=== PATIENT | female | born 1950 | race Caucasian/White ===

== ENCOUNTER 2024-06-28 14:32 | Emergency (ER) | payer OTHER ==
[~2024-06-28] VITALS: Ht 172.7 cm; Wt 69.9 kg
--- NOTE | 2024-06-28 14:47 | EKG ---
[facility] Test Date: 2024-06-28 Test Time: 14:44:47 Pat Name: JOS COPELAND Department: ED Room: Gender: F Cigarette Catcher: [id number] : 1950 Requested By: LINDA BETANCOURT Order Number: [id number] Reading MD: Rosa Robin Measurements Intervals [place] Rate: 64 P: 83 VA: 191 QRS: 22 QRSD: 96 T: 70 QT: 433 QTc: 449 Interpretive Statements Sinus rhythm Low voltage, precordial leads Consider anteroseptal infarct No previous ECG available for comparison Electronically Signed On 06-28-2024 16:59:04 FREIGHT RATE ANALYST by Rosa Robin Please click the below link to view image of tracing.
[2024-06-28 14:59] LABS: BASOPHILS # (AUTO) 0.04 K/uL (0.00-0.20); BASOPHILS % (AUTO) 0.3 % (0.0-5.0); EOSINOPHILS # (AUTO) 0.06 K/uL (0.00-0.70); EOSINOPHILS % (AUTO) 0.5 % (0.0-8.0); HEMATOCRIT 39.5 % (36-48); IMMATURE GRANULOCYTE ABSOLUTE 0.04 K/uL (0-1); LYMPHOCYTES # (AUTO) 1.8 K/uL (1.0-4.8); LYMPHOCYTES % (AUTO) 14.4 % (21.0-51.0); MEAN CORPUSCULAR HGB CONC 34.2 g/dL (32.0-36.0); MEAN CORPUSCULAR VOLUME 87.8 fL (79-99); MONOCYTES # (AUTO) 0.5 K/uL (0.1-1.0); MONOCYTES % (AUTO) 4.2 % (3.0-13.0); NEUTROPHILS # (AUTO) 9.8 K/uL (1.8-7.7); NEUTROPHILS % (AUTO) 80.3 % (40.0-77.0); PLATELET COUNT (AUTO) 272 K/uL (130-400); RED CELL DISTRIBUTION WIDTH 11.6 % (11.0-15.5); WHITE BLOOD COUNT (AUTO) 12.2 K/uL (4.8-10.8)
[2024-06-28 15:08] LABS: CREATININE 1.1 mg/dL (0.5-1.0); POTASSIUM 4.2 mmol/L (3.5-5.1)
--- NOTE | 2024-06-28 15:34 | HMCIMG ---
CT HEAD/BRAIN W/O CONTRAST HISTORY: Syncope COMPARISON: None TECHNIQUE: Multiple sequential axial images of the head were obtained from the base of the skull through vertex. Patient was not given contrast through intravenous route. FINDINGS: The ventricles and extraventricular CSF spaces are dilated consistent with cerebral atrophy. Nonspecific white matter changes seen. There is no midline shift, mass effect or herniation. No acute intracranial bleed is seen. Visualized portion of the paranasal sinuses are grossly within normal limits. IMPRESSION: 1. No acute intracranial bleed is seen. 2. Atrophy with white matter changes. CT was performed with one or more following dose reduction techniques: automated exposure control, adjustment of the mA and kv according to patient's size, or use of a iterative reconstruction technique.
--- NOTE | 2024-06-28 17:40 | NUR ---
BROUGHT INTO INTERNAL WAITING AREA FOR IV INSERTION AND MED PASS.
[2024-06-28] MEDS: ondanSETRON 4MG INJ IVP STA (17:47)
[2024-06-28] MEDS: mecliZINE HCL 25 MG TABLET PO STA (17:47)
[2024-06-28] MEDS: 0.9%NACL 1000ML 1,000 ML IV STA (17:48)
--- NOTE | 2024-06-28 18:32 | ERN ---
ED Note History of Present Illness Stated Complaint: SYNCOPE Chief Complaint: Dizzy/Light Headed Time Seen by MD: 14:33 Time Seen by Midlevel: 14:38 Dictation: 73-YEAR-OLD FEMALE WITH A HISTORY OF HYPERTENSION AND CHOLESTEROL COMING IN FOR EVALUATION OF WEAKNESS, DIZZINESS AND SYNCOPAL EPISODE. PATIENT STATES SHE WAS OUT GOLFING WHEN SHE STARTED TO FEEL DIZZY SAT DOWN THEN WHEN SHE TRIED TO GET UP AGAIN AND HAD A SYNCOPAL EPISODE. PATIENT STATES WHEN SHE WAS AT HOME THEY CHECKED HER BLOOD PRESSURE AND IT WAS IN THE 80S. DENIES ANY RECENT ILLNESS, NO FEVER, NO NAUSEA, NO VOMITING, NO DIARRHEA, NO CHEST PAIN OR CHEST DISCOMFORT. Allergies: Coded Allergies: No Known Allergies (Unverified Allergy, Unknown, 06/28/24) Past Medical History Past Medical History: High Cholesterol, Hypertension Surgical History: Hysterectomy Review of System Dictation CONSTITUTIONAL: NEGATIVE FOR FEVER,CHILLS, AND WEIGHT LOSS EYES: NEGATIVE FOR INJURY, PAIN,REDNESS, AND DISCHARGE ENT: NEGATIVE FOR INJURY,PAIN OR SWELLING CARDIOVASCULAR: NEGATIVE FOR CHEST PAIN, PALPITATIONS, AND EDEMA RESPIRATORY: NEGATIVE FOR SHORTNESS OF BREATH, COUGH, AND WHEEZING, ABDOMEN/GI: NEGATIVE FOR ABDOMINAL PAIN, NAUSEA, VOMITING, DIARRHEA, AND CONSTIPATION BACK: NEGATIVE FOR INJURY AND PAIN : NEGATIVE FOR INJURY, BLEEDING AND DISCHARGE MS/EXTREMITY: NEGATIVE FOR INJURY AND DEFORMITY SKIN: NEGATIVE FOR RASH, AND DISCOLORATION NEURO: NEGATIVE FOR HEADACHE, WEAKNESS, NUMBNESS, TINGLING, AND SEIZURE PSYCH: NEGATIVE FOR SUICIDE IDEATION, HOMICIDAL IDEATION, AND HALLUCINATIONS Review of Systems: was completed Initial Vital Sign VS Vital Signs Date Time Temp Pulse Resp B/P (MAP) Pulse Ox O2 Delivery O2 Flow Rate FiO2 06/28/24 14:37 97.3 71 20 125/65 100 Room Air Physical Exam Dictation GENERAL: AWAKE, ALERT, NAD HEAD/FACE: NORMOCEPHALIC, ATRAUMATIC EYES: PERRL, EOMI, VISION AT BASELINE ENT: ORAL CAVITY CLEAR, TMS CLEAR, NO SIGNS OF INFECTION NECK: TRACHEA MIDLINE, SUPPLE, NO NUCHAL RIGIDITY CARDIOVASCULAR: RRR, NORMAL S1/S2, NO MRGS, NO JVD RESPIRATORY: CTAB, NO RESPIRATORY DISTRESS, NO RALES OR WHEEZES ABDOMEN: SOFT, NON-TENDER, NON-DISTENDED, NORMAL BOWEL SOUNDS, NO GUARDING OR REBOUND. SKIN: WARM, DRY, NORMAL TURGOR, NO RASH MS/EXTREMITY: PULSES EQUAL, NO CYANOSIS, NEUROVASCULAR INTACT, FROM NEURO: COAX4, GCS 15, STRENGTH 5/5, CN 2-12 INTACT, NORMAL CEREBELLAR EXAM, NORMAL GAIT, PSYCH: NORMAL BEHAVIOR, MOOD, AND AFFECT NORMAL Results (Laboratory/Radiology) Laboratory/Radiology Laboratory Tests Test 06/28/24 14:50 White Blood Count 12.2 K/uL (4.8-10.8) H Red Blood Count 4.50 MIL/uL (4.00-5.50) Hemoglobin 13.5 g/dL (12.0-16.0) Hematocrit 39.5 % (36-48) Mean Corpuscular Volume 87.8 fL (79-99) Mean Corpuscular Hemoglobin 30.0 pg (27.0-33.0) Mean Corpuscular Hemoglobin Concent 34.2 g/dL (32.0-36.0) Red Cell Distribution Width 11.6 % (11.0-15.5) Platelet Count 272 K/uL (130-400) Mean Platelet Volume 9.2 fL (7.5-10.5) Immature Granulocyte % (Auto) 0.3 % (0-1) Neutrophils (%) (Auto) 80.3 % (40.0-77.0) H Lymphocytes (%) (Auto) 14.4 % (21.0-51.0) L Monocytes (%) (Auto) 4.2 % (3.0-13.0) Eosinophils (%) (Auto) 0.5 % (0.0-8.0) Basophils (%) (Auto) 0.3 % (0.0-5.0) Neutrophils # (Auto) 9.8 K/uL (1.8-7.7) H Lymphocytes # (Auto) 1.8 K/uL (1.0-4.8) Monocytes # (Auto) 0.5 K/uL (0.1-1.0) Eosinophils # (Auto) 0.06 K/uL (0.00-0.70) Basophils # (Auto) 0.04 K/uL (0.00-0.20) Absolute Immature Granulocyte (auto 0.04 K/uL (0-1) Nucleated Red Blood Cells 0.0 % (0.0-0.19) Sodium Level 142 mmol/L (136-145) Potassium Level 4.2 mmol/L (3.5-5.1) Chloride Level 105 mmol/L (101-111) Carbon Dioxide Level 27 mmol/L (21-32) Blood Urea Nitrogen 19 mg/dL (7-18) H Creatinine 1.1 mg/dL (0.5-1.0) H Glomerular Filtration Rate Calc 54 mL/min (>90) Random Glucose 129 mg/dL (70-105) H Total Calcium 10.0 mg/dL (8.5-10.1) Troponin I High Sensitivity 5 ng/L (4-50) Labs Reviewed?: Yes EKG Comment: DATE:06/28/24 TIME:144 VENTRICULAR RATE:64 UT INTERVAL:194 QRS DURATION:22 QT/QTC:433/449 EKG INTERPRETATION: SINUS RHYTHM, LOW VOLTAGE, PRECORDIAL LEADS, CONSIDER ANTEROSEPTAL INFARCT REVIEWED BY ED ATTENDING NO STEMI INTERPRETED BY ER MD CT Scan Comment: [address] [id number] IMAGING REPORT Signed PATIENT: JOS COPELAND MR#: [id number] : 1950 SEX: F AGE: 73 LOCATION: [facility] ORDER 43 STATUS: REG ER REPORT#: [id number] SERVICE 42 REASON: SYNCOPE/DIZZINESS ORDERING PHYSICIAN: LINDA BETANCOURT NP PROCEDURE: HEAD WO - CT HEAD/BRAIN W/O CONTRAST CT HEAD/BRAIN W/O CONTRAST HISTORY: Syncope COMPARISON: None TECHNIQUE: Multiple sequential axial images of the head were obtained from the base of the skull through vertex. Patient was not given contrast through intravenous route. FINDINGS: The ventricles and extraventricular CSF spaces are dilated consistent with cerebral atrophy. Nonspecific white matter changes seen. There is no midline shift, mass effect or herniation. No acute intracranial bleed is seen. Visualized portion of the paranasal sinuses are grossly within normal limits. IMPRESSION: 1. No acute intracranial bleed is seen. 2. Atrophy with white matter changes. CT was performed with one or more following dose reduction techniques: automated exposure control, adjustment of the mA and kv according to patient's size, or use of a iterative reconstruction technique. DICTATED BY: JERMAINE LOCO MD DATE: 06/28/241529 ELECTRONICALLY SIGNED BY: JERMAINE LOCO MD DATE: 06/28/24 1534 ED Course ED Course Orders Procedure Category Date Status Time Cbc With Differential LAB 06/28/24 Complete 14:43 Basic Metabolic Panel LAB 06/28/24 Complete 14:43 12 Lead Ekg Tracing- EKG 06/28/24 Resulted Technical 14:43 Troponin I High LAB 06/28/24 Complete Sensitivity 14:43 Ct Head/Brain W/O CT 06/28/24 Resulted Contrast 14:43 Urinalysis Profile LAB 06/28/24 Logged 14:43 0.9%Nacl 1000ml (Ns PHA 06/28/24 Complete 1000ml) 14:44 Ondansetron 4mg Inj PHA 06/28/24 Verified (Zofran 4mg Inj) 14:44 Meclizine Hcl 25 Mg PHA 06/28/24 Verified (Antivert 25 Mg) 14:44 Current Medications Medications (Trade) Dose Ordered Sig/Sydnie Route PRN Reason Start Time Stop Time Status Last Admin Dose Admin Meclizine HCl (ANTIvert 25 mg) 25 mg ONCE STAT PO 06/28/24 14:44 06/28/24 14:45 DC 06/28/24 17:47 Ondansetron HCl (zoFRAN 4MG INJ) 4 mg ONCE STAT IVP 06/28/24 14:44 06/28/24 14:45 DC 06/28/24 17:47 Sodium Chloride 1,000 ml @ 1,000 mls/hr Q1H STAT IV 06/28/24 14:44 06/28/24 15:43 DC 06/28/24 17:48 Vital Signs Date Time Temp Pulse Resp B/P (MAP) Pulse Ox O2 Delivery O2 Flow Rate FiO2 06/28/24 14:37 97.3 71 20 125/65 100 Room Air Medical Decision Making MDM MDM: 73-YEAR-OLD FEMALE WITH A HISTORY OF HYPERTENSION AND CHOLESTEROL COMING IN FOR EVALUATION OF WEAKNESS, DIZZINESS AND SYNCOPAL EPISODE. PATIENT STATES SHE WAS OUT GOLFING WHEN SHE STARTED TO FEEL DIZZY SAT DOWN THEN WHEN SHE TRIED TO GET UP AGAIN AND HAD A SYNCOPAL EPISODE. PATIENT STATES WHEN SHE WAS AT HOME THEY CHECKED HER BLOOD PRESSURE AND IT WAS IN THE 80S. PATIENT STATES BY THE TIME SHE ARRIVED HERE IN THE HOSPITAL DIZZINESS AND HER SYMPTOMS HAVE IMPROVED. DENIES ANY RECENT ILLNESS, NO FEVER, NO NAUSEA, NO VOMITING, NO DIARRHEA, NO CHEST PAIN OR CHEST DISCOMFORT.CBC SHOWS MILD LEUKOCYTOSIS OF 12, NO ANEMIA, THROMBOCYTOPENIA. CHEMISTRY SHOWS MILD ELEVATION OF BUN AND CREATININE, THIS COULD BE DUE TO DEHYDRATION. POTASSIUM IS NORMAL. CT OF THE HEAD IS NORMAL. TROPONIN IS NEGATIVE. EKGS SHOWS NO ST ELEVATIONS OR DYSRHYTHMIAS. AFTER FLUIDS AND MECLIZINE AND ZOFRAN PATIENT STATES SHE FEELS MUCH BETTER. DISCUSSED WITH THE PATIENT POSSIBILITY FOR ADMISSION FOR YOUR CARDIAC FURTHER EVALUATION, PATIENT STATES SHE RATHER FOLLOW UP WITH HER PCP SHE IS FEELING MUCH BETTER. EDUCATED ON RED FLAG SYMPTOMS AND WHEN TO RETURN BACK TO ER LIKE CHEST PAIN, SYNCOPE, NAUSEA, VOMITING. PATIENT AND SPOUSE VERBALIZED UNDERSTANDING, ANSWERED ALL QUESTIONS. DIFFERENTIAL DIAGNOSIS: ACS, DEHYDRATION, VASOVAGAL, ICH, RATIONALE: TESTS CONSIDERED AND ORDERED SECONDARY TO SHARED DECISION MAKING INCLUDE: PREVIOUS OUTSIDE RECORDS REVIEWED: OLD ER VISITS. RISK OF COMPLICATION AND/OR MORBIDITY OR MORTALITY OF PATIENT MANAGEMENT: NONE MEDICATIONS-PER MEDICATION RECONCILIATION NEED FOR HOSPITALIZATION: PATIENT DOES NOT MEET CRITERIA FOR HOSPITALIZATION. NEED FOR EMERGENCY MAJOR/MINOR SURGERY: NO THERE ARE NO SOCIAL CONCERNS WITH THIS PATIENT. PRESCRIPTION DRUG MANAGEMENT PRESCRIPTIONS WILL INCLUDE SYMPTOMATIC CARE PATIENT'S PRIOR EXTERNAL MEDICAL RECORDS FROM OTHER ER VISITS WERE REVIEWED BY ME INDICATED. PRIOR TESTING AND RESULTS FROM PREVIOUS VISITS WERE REVIEWED. PRIOR TESTS WERE TAKEN INTO ACCOUNT WITH MEDICAL DECISION MAKING AND RESOURCE UTILIZATION, INDEPENDENT HISTORIAN/HISTORIANS WERE USED TO OBTAIN COMPLETE MEDICAL HISTORY. I INDEPENDENTLY INTERPRETED THE TEST THAT WERE PERFORMED, RESULTS WERE REVIEWED BY ME AND CONSIDERED FINDINGS ON RADIOLOGY IF ORDERED. MEDICAL MANAGEMENT AND EXAMINATION INTERPRETATION DISCUSSIONS WERE HAD BY ME WITH OTHER QUALIFIED HEALTHCARE PROFESSIONALS INDICATED FOR THE PATIENT'S CARE. DX & DISP Disposition: Discharge Departure Impression: Primary Impression: Dehydration Additional Impression: Syncope Condition: Stable Additional Instructions: PLEASE FOLLOW UP WITH YOUR PCP IN 1-2 DAYS. RETURN TO THE EMERGENCY ROOM IF YOU HAVE ANY WORSENING SYMPTOMS. INCREASE HYDRATION. Referrals: SELF,REFERRAL (PCP) Time of Disposition: 18:32 I have reviewed the case, and I agree with, Diagnosis and Plan LINDA BETANCOURT NP Jun 28, 2024 18:32
--- NOTE | 2024-06-28 18:50 | NUR ---
BROUGHT PT INTO INTERNAL WAITING AREA FOR DC INSTUCTIONS AND DC IV
[2024-06-28 19:14] VITALS: BP 126/76; PULSE 70; RESP 20; TEMP 97.9; O2SAT 98
== END 2024-06-28 19:15 | disposition home or self-care (01) ==
LOC: EDH 14:32
DX: E86.0 Dehydration (principal); R55 Syncope and collapse; E78.00 Pure hypercholesterolemia, unspecified; I10 Essential (primary) hypertension; Z90.710 Acquired absence of both cervix and uterus
CPT/HCPCS: 99284; 96374; 70450; 84484; 80048; 85025; 36415; 93005; J7030; J2405